=== PATIENT | female | born 1975 | race Hispanic/Latino ===

== ENCOUNTER 2021-03-15 11:58 | Emergency (ER) | payer MEDICAID ==
[~2021-03-15] VITALS: Ht 167.6 cm; Wt 99.8 kg
[2021-03-15 12:04] VITALS: BP 123/79
[2021-03-15 12:26] LABS: BASOPHILS % (AUTO) 0.5 % (0.0-5.0); EOSINOPHILS % (AUTO) 3.3 % (0.0-8.0); HEMATOCRIT 45.1 % (36-48); LYMPHOCYTES % (AUTO) 33.1 % (21.0-51.0); MEAN CORPUSCULAR HEMOGLOBIN 29.5 pg (27.0-33.0); MEAN CORPUSCULAR HGB CONC 32.8 g/dL (32.0-36.0); MEAN CORPUSCULAR VOLUME 89.8 fL (79-99); MONOCYTES % (AUTO) 6.1 % (3.0-13.0); NEUTROPHILS % (AUTO) 56.6 % (40.0-77.0); PLATELET COUNT (AUTO) 256 K/uL (130-400); RED BLOOD CELL COUNT(AUTO) 5.02 MIL/uL (4.00-5.50); RED CELL DISTRIBUTION WIDTH 12.6 % (11.0-15.5); WHITE BLOOD COUNT (AUTO) 12.9 K/uL (4.8-10.8)
[2021-03-15] MEDS ORDERED: MORPHINE 2 MG SYG IVP ONE (12:30)
[2021-03-15] MEDS ORDERED: ONDANSETRON 4MG INJ IVP ONE (12:30)
[2021-03-15] MEDS ORDERED: 0.9%NACL 1000ML 1,000 ML IV SCH (12:30)
[2021-03-15 12:42] LABS: ALBUMIN 3.6 g/dL (3.5-5.0); BILIRUBIN,TOTAL 0.6 mg/dL (0.2-1.0); CREATININE 0.7 mg/dL (0.5-1.5); POTASSIUM 4.2 mmol/L (3.5-5.1); TOTAL PROTEIN, SERUM 8.2 g/dL (6.0-8.3)
[2021-03-15 12:53] LABS: APPEARANCE,URINE Clear (CLEAR); BILIRUBIN,URINE Negative (NEGATIVE); COLOR,URINE Yellow (YELLOW); GLUCOSE, URINE (UA) Negative (NEGATIVE); KETONES,URINE Negative (NEGATIVE); LEUKOCYTE ESTERASE ,URINE Large (NEGATIVE); NITRATE,URINE Negative (NEGATIVE); OCCULT BLOOD,URINE Negative (NEGATIVE); PROTEIN,URINE Negative (NEGATIVE)
[2021-03-15] MEDS ORDERED: CEFTRIAXONE 1G VIAL IVP ONE (13:30)
[2021-03-15 13:40] LABS: RBC,URINE 0-1 /HPF (0-1)
[2021-03-15 13:41] LABS: BACTERIA,URINE Few /HPF (None Seen)
[2021-03-15] MEDS ORDERED: LACT10PA5 PO (14:17)
[2021-03-15] MEDS ORDERED: LACTULOSE 20 GM/30 ML UDCUP PO ONE (14:30)
[2021-03-15] MEDS ORDERED: MAGNESIUM CITRATE 296 ML SOLUTION PO ONE (14:30)
[2021-03-15] MEDS ORDERED: CEPH500B PO (14:49)
== END 2021-03-15 14:55 | disposition home or self-care (01) ==
LOC: EDH 11:58
DX: N39.0 Urinary tract infection, site not specified (principal); K59.00 Constipation, unspecified; E66.9 Obesity, unspecified; E78.00 Pure hypercholesterolemia, unspecified; K21.9 Gastro-esophageal reflux disease without esophagitis; Z68.35 Body mass index [BMI] 35.0-35.9, adult
CPT/HCPCS: 36415; 74176; 80053; 81001; 81025; 82150; 83690; 85025; 87088; 96361 ×2; 96374; 96375; 99284; J0696; J2405; J7030

== ENCOUNTER 2023-11-29 05:47 | Day surgery (SDC) | payer MEDICAID ==
[2023-11-29] VITALS (10 sets, daily range): BP systolic 100–123; BP diastolic 66–80; PULSE 57–68; RESP 12–18
[~2023-11-29 05:47] MED LIST: CEPH500B PO; LACT10PA5 PO
[2023-11-29] MEDS: 0.9%NACL 1000ML 1,000 ML IV ONE (07:00)
[2023-11-29] MEDS ORDERED: DULA0.75 SQ (07:21)
[2023-11-29] MEDS ORDERED: ATOR10TA69 PO (07:21)
[2023-11-29] MEDS ORDERED: LISI20TA24 PO (07:21)
[2023-11-29] MEDS ORDERED: DAPA10TA PO (07:21)
[2023-11-29] MEDS ORDERED: SENN-279 PO (07:21)
[2023-11-29] MEDS ORDERED: PANT20TA18 PO (07:21)
[2023-11-29] MEDS ORDERED: PROPOFOL 10 MG/ML 20ML VIAL IV ONE ×2 (08:04→08:28)
== END 2023-11-29 09:45 | disposition home or self-care (01) ==
LOC: DAH 05:47 → ENDO 05:47
PROVIDERS: ATTEND Internal Medicine Gastroenterology
DX: R19.4 Change in bowel habit (principal); R12 Heartburn; K31.89 Other diseases of stomach and duodenum; K29.70 Gastritis, unspecified, without bleeding; K76.0 Fatty (change of) liver, not elsewhere classified; E78.5 Hyperlipidemia, unspecified; E66.01 Morbid (severe) obesity due to excess calories; I10 Essential (primary) hypertension; E11.9 Type 2 diabetes mellitus without complications; Z86.16 Personal history of COVID-19; Z98.891 History of uterine scar from previous surgery; Z90.721 Acquired absence of ovaries, unilateral; Z68.42 Body mass index [BMI] 45.0-49.9, adult
CPT/HCPCS: 81025; 45378; 43239; 82948 ×2; J7030; J3490 ×2; A4620; A4215 ×2; A4223; A4222; A4221; A4663; A4606; J2704

== ENCOUNTER 2023-12-31 12:29 | Emergency (ER) | payer MEDICAID ==
[~2023-12-31] VITALS: Ht 154.9 cm; Wt 106.1 kg
[~2023-12-31 12:29] MED LIST changes: +ATOR10TA69 PO; -CEPH500B PO; +DAPA10TA PO; +DULA0.75 SQ; -LACT10PA5 PO; +LISI20TA24 PO; +PANT20TA18 PO; +SENN-279 PO
[2023-12-31] MEDS: 0.9%NACL 1000ML 1,000 ML IV ONE (12:53)
[2023-12-31] MEDS: KETOROLAC 30MG VIAL (30MG/ML) IVP ONE (12:54)
[2023-12-31 12:57] LABS: BASOPHILS # (AUTO) 0.05 K/uL (0.00-0.20); BASOPHILS % (AUTO) 0.4 % (0.0-5.0); EOSINOPHILS % (AUTO) 0.7 % (0.0-8.0); HEMATOCRIT 50.2 % (36-48); IMMATURE GRANULOCYTE ABSOLUTE 0.05 K/uL (0-1); LYMPHOCYTES # (AUTO) 2.6 K/uL (1.0-4.8); LYMPHOCYTES % (AUTO) 18.3 % (21.0-51.0); MEAN CORPUSCULAR HEMOGLOBIN 29.2 pg (27.0-33.0); MEAN CORPUSCULAR HGB CONC 33.3 g/dL (32.0-36.0); MEAN CORPUSCULAR VOLUME 87.9 fL (79-99); MONOCYTES # (AUTO) 0.7 K/uL (0.1-1.0); MONOCYTES % (AUTO) 5.1 % (3.0-13.0); NEUTROPHILS # (AUTO) 10.7 K/uL (1.8-7.7); NEUTROPHILS % (AUTO) 75.1 % (40.0-77.0); PLATELET COUNT (AUTO) 212 K/uL (130-400); RED BLOOD CELL COUNT(AUTO) 5.71 MIL/uL (4.00-5.50); RED CELL DISTRIBUTION WIDTH 13.2 % (11.0-15.5); WHITE BLOOD COUNT (AUTO) 14.2 K/uL (4.8-10.8)
[2023-12-31] MEDS ORDERED: IOHEXOL-350 75 ML VIAL IV ONE (13:03)
[2023-12-31 13:04] LABS: CREATININE 0.8 mg/dL (0.5-1.0); POTASSIUM 3.7 mmol/L (3.5-5.1)
[2023-12-31 13:07] LABS: HCG,QUALITATIVE URINE NEGATIVE (NEGATIVE)
[2023-12-31 13:09] LABS: BILIRUBIN,TOTAL 0.8 mg/dL (0.2-1.0); TOTAL PROTEIN, SERUM 8.7 g/dL (6.0-8.3)
[2023-12-31 13:10] LABS: APPEARANCE,URINE CLOUDY (CLEAR); BILIRUBIN,URINE NEGATIVE (NEGATIVE); COLOR,URINE YELLOW (YELLOW); GLUCOSE, URINE (UA) >=1000 mg/dL (NEGATIVE); KETONES,URINE NEGATIVE (NEGATIVE); LEUKOCYTE ESTERASE ,URINE 75 Leu/uL (NEGATIVE); NITRATE,URINE NEGATIVE (NEGATIVE); PROTEIN,URINE 10 mg/dL (NEGATIVE); UROBILINOGEN,URINE 0.2 mg/dL (0.2-1.0)
[2023-12-31 13:11] LABS: ADD UA MICROSCOPIC YES
[2023-12-31 13:13] LABS: BACTERIA,URINE FEW /HPF (None Seen); MUCUS,URINE RARE LPF (None Seen); SQUAMOUS EPITHELIAL CELL,UR MANY /HPF (0-2)
[2023-12-31 13:45] VITALS: BP 117/53; PULSE 74; RESP 14; O2SAT 96
[2023-12-31] MEDS ORDERED: DICY20TA2 PO ×2 (13:59→14:31)
== END 2023-12-31 14:08 | disposition home or self-care (01) ==
LOC: EDH 12:29
DX: K52.9 Noninfective gastroenteritis and colitis, unspecified (principal); D72.829 Elevated white blood cell count, unspecified; B96.81 Helicobacter pylori [H. pylori] as the cause of diseases classified elsewhere
CPT/HCPCS: 99285; 74177; 96374; 96361; 80053; 85025; 87086; 81001; 81025; 36415; J7030; J1885; Q9967

== ENCOUNTER 2024-03-28 18:34 | Emergency (ER) | payer MEDICAID ==
[~2024-03-28] VITALS: Ht 162.6 cm; Wt 99.8 kg
[~2024-03-28 18:34] MED LIST changes: +DICY20TA2 PO
[2024-03-28] MEDS: 0.9%NACL 1000ML 1,000 ML IV ONE (20:10)
[2024-03-28] MEDS: PANTOPrazole 40 MG/VIAL IVP ONE (20:10)
[2024-03-28] MEDS: acetaMINOPHEN 500 MG TABLET PO ONE (20:10)
[2024-03-28 20:11] LABS: APPEARANCE,URINE CLEAR (CLEAR); BILIRUBIN,URINE NEGATIVE (NEGATIVE); COLOR,URINE LIGHT-YELLOW (YELLOW); GLUCOSE, URINE (UA) >=1000 mg/dL (NEGATIVE); KETONES,URINE 5 mg/dL (NEGATIVE); LEUKOCYTE ESTERASE ,URINE 500 Leu/uL (NEGATIVE); NITRATE,URINE NEGATIVE (NEGATIVE); PH,URINE 5.5 (5.0-8.0); PROTEIN,URINE NEGATIVE (NEGATIVE); UROBILINOGEN,URINE 0.2 mg/dL (0.2-1.0)
[2024-03-28 20:12] LABS: ADD UA MICROSCOPIC YES
[2024-03-28 20:16] LABS: MUCUS,URINE RARE LPF (None Seen); SQUAMOUS EPITHELIAL CELL,UR MOD /HPF (0-2)
[2024-03-28 20:17] LABS: BASOPHILS # (AUTO) 0.08 K/uL (0.00-0.20); BASOPHILS % (AUTO) 0.9 % (0.0-5.0); EOSINOPHILS # (AUTO) 0.24 K/uL (0.00-0.70); EOSINOPHILS % (AUTO) 2.6 % (0.0-8.0); HEMATOCRIT 45.3 % (36-48); IMMATURE GRANULOCYTE ABSOLUTE 0.04 K/uL (0-1); LYMPHOCYTES # (AUTO) 3.8 K/uL (1.0-4.8); MEAN CORPUSCULAR HEMOGLOBIN 28.9 pg (27.0-33.0); MEAN CORPUSCULAR HGB CONC 32.5 g/dL (32.0-36.0); MONOCYTES # (AUTO) 0.7 K/uL (0.1-1.0); MONOCYTES % (AUTO) 7.5 % (3.0-13.0); NEUTROPHILS # (AUTO) 4.4 K/uL (1.8-7.7); NEUTROPHILS % (AUTO) 47.6 % (40.0-77.0); PLATELET COUNT (AUTO) 195 K/uL (130-400); RED BLOOD CELL COUNT(AUTO) 5.09 MIL/uL (4.00-5.50); RED CELL DISTRIBUTION WIDTH 12.8 % (11.0-15.5); WHITE BLOOD COUNT (AUTO) 9.3 K/uL (4.8-10.8)
[2024-03-28 20:38] LABS: CREATININE 0.9 mg/dL (0.5-1.0); POTASSIUM 4.1 mmol/L (3.5-5.1)
[2024-03-28 20:48] LABS: ALBUMIN 3.3 g/dL (3.5-5.0); BILIRUBIN,DIRECT 0.1 mg/dL (0.0-0.3); BILIRUBIN,TOTAL 0.3 mg/dL (0.2-1.0); TOTAL PROTEIN, SERUM 7.4 g/dL (6.0-8.3)
[2024-03-28] MEDS: cefTRIAXone 1G VIAL IVPB ONE (20:59)
[2024-03-28] MEDS ORDERED: NITR100C4 PO (21:56)
[2024-03-28 22:11] VITALS: BP 124/78; PULSE 77; RESP 18; TEMP 98.2; O2SAT 99
== END 2024-03-28 22:15 | disposition home or self-care (01) ==
LOC: EDH 18:34
DX: N39.0 Urinary tract infection, site not specified (principal); R51.9 Headache, unspecified; R53.1 Weakness; R03.1 Nonspecific low blood-pressure reading; E11.9 Type 2 diabetes mellitus without complications; E78.00 Pure hypercholesterolemia, unspecified; I10 Essential (primary) hypertension; K21.9 Gastro-esophageal reflux disease without esophagitis; E66.9 Obesity, unspecified; Z68.30 Body mass index [BMI] 30.0-30.9, adult; Z79.899 Other long term (current) drug therapy; Z90.710 Acquired absence of both cervix and uterus; Z98.890 Other specified postprocedural states
CPT/HCPCS: 99285; 96374; 70450; 96375; 82550; 80076; 84484; 80048; 85025; 87086; 81001; 36415; 93005; J7030; J0696; J2470